=== PATIENT | female | born 1975 | race Caucasian/White ===

== ENCOUNTER 2016-03-30 20:38 | Emergency (ER) | payer OTHER ==
--- NOTE | 2016-03-30 21:34 | ED NURSING NOTES ---
Clinical Report - Nurses [facility] [address] [place] [address] 03/30/2016 20:37 Patient: TINY HARVEY TRIAGE Acuity: LEVEL 4. Chief Complaint: SKIN RASH. --20:52 Vanessa Hoover R.N. 20:40 03/30/16. BP: 110/78. HR: 98. RR: 18. O2 saturation: 98% on room air. Temp: 99.3 F. Pain level now: 09/03. --20:52 Vanessa Hoover R.N. 20:55 03/30/16. --20:55 Vanessa Hoover R.N. Weight: 77.1 kg stated. Height/Length: 64 inches Per Patient. BMI: 29.2. --20:50 Vanessa Hoover R.N. Medications TraMADol HCl Oral. --20:47 Vanessa Hoover R.N. Vibrin 10mg daily . --20:48 Vanessa Hoover R.N. Keflex 500mg 6hrs first dose yesterday . --20:48 Vanessa Hoover R.N. Tramadol 50mg every 6 hrs prn . --20:51 Vanessa Hoover R.N. Allergies Casein. Dairy. Gluten Meal. Soybean-containing Drug Products. wheat . --20:47 Vanessa Hoover R.N. History Arrived by private vehicle. Historian: patient. Accompanied by friend. Reported as (lt axillary area). ( was seen at [facility] yesterday and started on antibiotics--has had 4 doses of antibiotics -- states symptoms are getting worse). She has had fever. ( dx with abscess and cellulitis yesterday. she also states her naturalpath states she has samira and parasites). --20:52 Vanessa Hoover R.N. PAST MEDICAL HX: Last normal menstrual period now. Uses an intrauterine device. SOCIAL HX: Never smoker. No alcohol use or drug use. No infectious disease exposure. ABUSE ASSESSMENT: No report of abuse. SELF HARM ASSESSMENT: A self harm assessment was performed. The patient answered "no" to the question "Have you recently felt down, depressed, or hopeless?", "Have you noticed less interest or pleasure in doing things?", "Do you have thoughts of harming or killing yourself?", "Are you here because you tried to hurt yourself?", "Have you ever tried to hurt yourself before today?", "Have you recently had thoughts about harming or killing others?" and "Do you have any dangerous items in your possession?". FALL RISK ASSESSMENT: Fall risk assessment completed. No fall risk identified. NUTRITIONAL RISK ASSESSMENT: The nutritional risk assessment revealed no deficiencies. FUNCTIONAL ASSESSMENT: Functional assessment: no impairments noted. LEARNING NEEDS ASSESSMENT: The learning needs assessment revealed no barriers. SKIN INTEGRITY ASSESSMENT: Skin integrity risk assessment completed. No skin integrity risk identified. --20:55 Vanessa Hoover R.N. Interventions ID band on patient. To treatment room. --20:52 Vanessa Hoover R.N. PHYSICAL ASSESSMENT 20:57 03/30/16. Ambulatory to room. GENERAL / NEURO / PSYCH: Alert. Oriented X 4. HEENT: Pupils equal, round and reactive to light. Mucous membranes are pink. RESPIRATORY: Respirations not labored. Breath sounds within normal limits. CVS: Pulses within normal limits. GI / : Abdomen nontender. SKIN: Skin is warm and dry. Skin lesion present- scattered small flat red lesions all over body. Skin tenderness- associated with erythema, swelling and increased warmth- left axilla, size of palm of hand. --20:57 Vanessa Hoover R.N. NURSING PROGRESS NOTES 20:55 03/30/16. The initial plan of care for this patient includes an assessment with efforts to address the presence of pain. This plan of care was discussed with the patient. Patient gowned. Reassurance given. Two patient identifiers checked. Call light placed in reach. Side rails up x 1. Bed placed in lowest position. Patient ready for evaluation. --20:56 Vanessa Hoover R.N. DISPOSITION / DISCHARGE 21:52 03/30/16. Departure time: 21 :52 Mar 30 2016. Condition at departure: improved and stable. The goals identified in the patient's plan of care were met. No learning barriers present. Discharge instructions provided and reviewed with the patient. Reviewed medication(s) side effects, precautions, dosing and course information. Prescription(s) given to the patient. Patient verbalized understanding. Written instructions provided in Dominican. The patient was discharged home and accompanied by press officer. She left the Emergency Department ambulatory and via private vehicle. Chemical Waste Management Technician driving. --19:03 Kimber Ochoa R.N. 20:40 03/30/16. BP: 110/78. HR: 98. RR: 18. O2 saturation: 98% on room air. Temp: 99.3 F. Pain level now: 09/03. --19:03 Kimber Ochoa R.N. Locked/Released at 03/31/2016 19:03 by Kimber Ochoa R.N.
--- NOTE | 2016-03-30 21:34 | ED NURSING NOTES ---
Clinical Report - Nurses [facility] [address] [place] [address] 03/30/2016 20:37 Patient: TINY HARVEY TRIAGE Acuity: LEVEL 4. Chief Complaint: SKIN RASH. --20:52 Vanessa Hoover R.N. 20:40 03/30/16. BP: 110/78. HR: 98. RR: 18. O2 saturation: 98% on room air. Temp: 99.3 F. Pain level now: 09/03. --20:52 Vanessa Hoover R.N. 20:55 03/30/16. --20:55 Vanessa Hoover R.N. Weight: 77.1 kg stated. Height/Length: 64 inches Per Patient. BMI: 29.2. --20:50 Vanessa Hoover R.N. Medications TraMADol HCl Oral. --20:47 Vanessa Hoover R.N. Vibrin 10mg daily . --20:48 Vanessa Hoover R.N. Keflex 500mg 6hrs first dose yesterday . --20:48 Vanessa Hoover R.N. Tramadol 50mg every 6 hrs prn . --20:51 Vanessa Hoover R.N. Allergies Casein. Dairy. Gluten Meal. Soybean-containing Drug Products. wheat . --20:47 Vanessa Hoover R.N. History Arrived by private vehicle. Historian: patient. Accompanied by friend. Reported as (lt axillary area). ( [facility]--has had 4 doses of antibiotics -- states symptoms are getting worse). She has had fever. ( dx with abscess and cellulitis yesterday. she also states her naturalpath states she has samira and parasites). --20:52 Vanessa Hoover R.N. PAST MEDICAL HX: Last normal menstrual period now. Uses an intrauterine device. SOCIAL HX: Never smoker. No alcohol use or drug use. No infectious disease exposure. ABUSE ASSESSMENT: No report of abuse. SELF HARM ASSESSMENT: A self harm assessment was performed. The patient answered "no" to the question "Have you recently felt down, depressed, or hopeless?", "Have you noticed less interest or pleasure in doing things?", "Do you have thoughts of harming or killing yourself?", "Are you here because you tried to hurt yourself?", "Have you ever tried to hurt yourself before today?", "Have you recently had thoughts about harming or killing others?" and "Do you have any dangerous items in your possession?". FALL RISK ASSESSMENT: Fall risk assessment completed. No fall risk identified. NUTRITIONAL RISK ASSESSMENT: The nutritional risk assessment revealed no deficiencies. FUNCTIONAL ASSESSMENT: Functional assessment: no impairments noted. LEARNING NEEDS ASSESSMENT: The learning needs assessment revealed no barriers. SKIN INTEGRITY ASSESSMENT: Skin integrity risk assessment completed. No skin integrity risk identified. --20:55 Vanessa Hoover R.N. Interventions ID band on patient. To treatment room. --20:52 Vanessa Hoover R.N. PHYSICAL ASSESSMENT 20:57 03/30/16. Ambulatory to room. GENERAL / NEURO / PSYCH: Alert. Oriented X 4. HEENT: Pupils equal, round and reactive to light. Mucous membranes are pink. RESPIRATORY: Respirations not labored. Breath sounds within normal limits. CVS: Pulses within normal limits. GI / : Abdomen nontender. SKIN: Skin is warm and dry. Skin lesion present- scattered small flat red lesions all over body. Skin tenderness- associated with erythema, swelling and increased warmth- left axilla, size of palm of hand. --20:57 Vanessa Hoover R.N. NURSING PROGRESS NOTES 20:55 03/30/16. The initial plan of care for this patient includes an assessment with efforts to address the presence of pain. This plan of care was discussed with the patient. Patient gowned. Reassurance given. Two patient identifiers checked. Call light placed in reach. Side rails up x 1. Bed placed in lowest position. Patient ready for evaluation. --20:56 Vanessa Hoover R.N. DISPOSITION / DISCHARGE 21:52 03/30/16. Departure time: 21 :52 Mar 30 2016. Condition at departure: improved and stable. The goals identified in the patient's plan of care were met. No learning barriers present. Discharge instructions provided and reviewed with the patient. Reviewed medication(s) side effects, precautions, dosing and course information. Prescription(s) given to the patient. Patient verbalized understanding. Written instructions provided in Monegasque. The patient was discharged home and accompanied by manager planning. She left the Emergency Department ambulatory and via private vehicle. Mixer And Scaler driving. --19:03 Kimber Ochoa R.N. 20:40 03/30/16. BP: 110/78. HR: 98. RR: 18. O2 saturation: 98% on room air. Temp: 99.3 F. Pain level now: 09/03. --19:03 Kimber Ochoa R.N. Locked/Released at 03/31/2016 19:03 by Kimber Ochoa R.N.
--- NOTE | 2016-03-30 21:34 | ED CLINICAL REPORT ---
Clinical Report - Physicians/Mid Levels [facility] [address] [place] [address] 03/30/2016 20:37 Patient: TINY HARVEY Time Seen: 2114; initial patient contact, initial documentation, patient care assumed. Arrived- By private vehicle. Historian- patient. HISTORY OF PRESENT ILLNESS Chief Complaint: SKIN RASH and LESION. This started about 1 years ago or longer and is still present. Not itchy or burning. It is described as painful. It has been generalized in location and located in the left axilla. A possible cause has been identified. (pt has x2 separate issues, has a rash that has been there for over a year, and she states that there are black snail shells things comes out that roll up, she also admits to picking at the wounds, other issue is an abscess or cellulitis to the L armpit area that started this past weekend, started has red hair follicle bump thing). Similar symptoms previously: Chronically, as bad. ( rash). Recent medical care: The patient was seen recently in the office. ( went to yesterday, given rx ultram and keflex for cellulitis, not sure if it is worse, but not better and he didn't treat the rash). REVIEW OF SYSTEMS No fever. All systems otherwise negative, except as recorded above. SOCIAL HISTORY Never smoker. No alcohol use or drug use. No recent travel. Visiting locally. FAMILY HISTORY Negative. ADDITIONAL NOTES The nursing notes have been reviewed with agreement regarding the chief complaint, HPI, ROS, PMH and patient medications and allergies. PHYSICAL EXAM Vital Signs: 03/30/2016 20:40 BP: 110/78. HR: 98. RR: 18. O2 saturation: 98%. Temp: 99.3 F. Pain level now: 7/10. Appearance: Alert. Oriented X3. No acute distress. Anxious. Neck: Neck supple. Respiratory: No respiratory distress. Skin: Skin warm and dry. Abnormal skin color. Rash present. Normal skin turgor. Small area of cellulitis with tenderness, erythema and warmth to the chest (L side of chest near axilla and breast). No lymphangitis. Mild, well-demarcated, erythematous, macular, papular, vesicular, weeping, crusting, excoriated skin rash on the face, chest, back, right arm and left arm- various scabs noted to face, arms, chest, abd, back, some with excoriations, some healing with scar like ruvalcaba, no erythema, no dc, no swelling. Extremities: Normal external inspection. Extremities nontender. Neuro: Oriented X 3. No motor deficit. No sensory deficit. PROGRESS AND PROCEDURES Course of Care: pt showing pics on her phone of her skin and the things that she thinks is coming out that is some type of worm. Patient counseled in person regarding the patient's stable condition and diagnosis. 21:34. Differential Diagnosis: Other possible considerations: mrsa, cellulitis, abscess, scabies, dermatitis, substance abuse, fungus, anxiety. Above considerations are based on history and physical exam. Differential diagnosis was discussed with patient. Disposition: Discharged home in good and unchanged condition (21:34). Condition: good and stable. CLINICAL IMPRESSION Cellulitis of the chest wall. Skin rash. INSTRUCTIONS (over the counter lice shampoo as discussed). Warnings: GENERAL WARNINGS: Return or contact your physician immediately if your condition worsens or changes unexpectedly, if not improving as expected, or if other problems arise. Specifically return if problem worsens. Prescription Medications: Bactrim DS 800 mg / 160 mg: take 1 tablet orally every 12 hours for 10 days. No refill. Bactroban 2% ointment: apply small amount to affected area three times daily for 5 days. Dispense twenty-two (22) grams. No refills. Substitution is permissible. Follow-up: Follow up with your doctor in about three days as needed. Call for an appointment. Summary of care provided to patient. Follow up with a logging crew supervisor [facility] [phone] in about three days as needed. Call for an appointment. Summary of care provided to patient. Understanding of the discharge instructions verbalized by patient. (Electronically signed by Rika Renteria A.R.N.P. 03/30/2016 22:14)
--- NOTE | 2016-03-30 21:34 | ED CLINICAL REPORT ---
Clinical Report - Physicians/Mid Levels [facility] [address] [place] [address] 03/30/2016 20:37 Patient: TINY HARVEY Time Seen: 2114; initial patient contact, initial documentation, patient care assumed. Arrived- By private vehicle. Historian- patient. HISTORY OF PRESENT ILLNESS Chief Complaint: SKIN RASH and LESION. This started about 1 years ago or longer and is still present. Not itchy or burning. It is described as painful. It has been generalized in location and located in the left axilla. A possible cause has been identified. (pt has x2 separate issues, has a rash that has been there for over a year, and she states that there are black snail shells things comes out that roll up, she also admits to picking at the wounds, other issue is an abscess or cellulitis to the L armpit area that started this past weekend, started has red hair follicle bump thing). Similar symptoms previously: Chronically, as bad. ( rash). Recent medical care: The patient was seen recently in the office. ( went to yesterday, given rx ultram and keflex for cellulitis, not sure if it is worse, but not better and he didn't treat the rash). REVIEW OF SYSTEMS No fever. All systems otherwise negative, except as recorded above. SOCIAL HISTORY Never smoker. No alcohol use or drug use. No recent travel. Visiting locally. FAMILY HISTORY Negative. ADDITIONAL NOTES The nursing notes have been reviewed with agreement regarding the chief complaint, HPI, ROS, PMH and patient medications and allergies. PHYSICAL EXAM Vital Signs: 03/30/2016 20:40 BP: 110/78. HR: 98. RR: 18. O2 saturation: 98%. Temp: 99.3 F. Pain level now: 7/10. Appearance: Alert. Oriented X3. No acute distress. Anxious. Neck: Neck supple. Respiratory: No respiratory distress. Skin: Skin warm and dry. Abnormal skin color. Rash present. Normal skin turgor. Small area of cellulitis with tenderness, erythema and warmth to the chest (L side of chest near axilla and breast). No lymphangitis. Mild, well-demarcated, erythematous, macular, papular, vesicular, weeping, crusting, excoriated skin rash on the face, chest, back, right arm and left arm- various scabs noted to face, arms, chest, abd, back, some with excoriations, some healing with scar like ruvalcaba, no erythema, no dc, no swelling. Extremities: Normal external inspection. Extremities nontender. Neuro: Oriented X 3. No motor deficit. No sensory deficit. PROGRESS AND PROCEDURES Course of Care: pt showing pics on her phone of her skin and the things that she thinks is coming out that is some type of worm. Patient counseled in person regarding the patient's stable condition and diagnosis. 21:34. Differential Diagnosis: Other possible considerations: mrsa, cellulitis, abscess, scabies, dermatitis, substance abuse, fungus, anxiety. Above considerations are based on history and physical exam. Differential diagnosis was discussed with patient. Disposition: Discharged home in good and unchanged condition (21:34). Condition: good and stable. CLINICAL IMPRESSION Cellulitis of the chest wall. Skin rash. INSTRUCTIONS (over the counter lice shampoo as discussed). Warnings: GENERAL WARNINGS: Return or contact your physician immediately if your condition worsens or changes unexpectedly, if not improving as expected, or if other problems arise. Specifically return if problem worsens. Prescription Medications: Bactrim DS 800 mg / 160 mg: take 1 tablet orally every 12 hours for 10 days. No refill. Bactroban 2% ointment: apply small amount to affected area three times daily for 5 days. Dispense twenty-two (22) grams. No refills. Substitution is permissible. Follow-up: Follow up with your doctor in about three days as needed. Call for an appointment. Summary of care provided to patient. Follow up with a educational program director [facility] [phone] in about three days as needed. Call for an appointment. Summary of care provided to patient. Understanding of the discharge instructions verbalized by patient. (Electronically signed by Rika Renteria A.R.N.P. 03/30/2016 22:14)
--- NOTE | 2016-03-31 19:04 | ED MAR SUMMARY ---
..... Medication Administration Record [facility] [address] [place] [id number] Patient: TINY HARVEY Visit ID: [id number] 41y, F Weight: 77.1 kg Height/Length: 64 in BMI: 29.2 ALLERGIES: Casein, Dairy, Gluten Meal, Soybean-containing Drug Products, wheat
--- NOTE | 2016-03-31 19:04 | ED MAR SUMMARY ---
..... Medication Administration Record [facility] [address] [place] [id number] Patient: TINY HARVEY Visit ID: [id number] 41y, F Weight: 77.1 kg Height/Length: 64 in BMI: 29.2 ALLERGIES: Casein, Dairy, Gluten Meal, Soybean-containing Drug Products, wheat
--- NOTE | 2016-03-31 19:04 | ED MED RECONCILIATION SUMMARY ---
Patient: TINY HARVEY Medication Reconciliation Report [facility] VisitID: [id number] [place] [address] 41y, F Registration Date/Time: 03/30/2016 Weight: 77.1 kg Height/Length: 64 in. BMI: 29.2 ALLERGIES: Casein, Dairy, Gluten Meal, Soybean-containing Drug Products, wheat The patient's Home Medications are listed below: THE FOLLOWING MEDICATIONS NEED TO BE RECONCILED: Keflex 500mg 6hrs first dose yesterday Tramadol 50mg every 6 hrs prn TraMADol HCl Oral Vibrin 10mg daily The source(s) of the original Home Medication information: Not obtained. The following Medications were given to the patient in the Emergency Department: None. The following Medications were prescribed to the patient: Bactrim DS 800 mg / 160 mg: take 1 tablet orally every 12 hours for 10 days. No refill. -- Rika Renteria, JeanetteR.N.P. Bactroban 2% ointment: apply small amount to affected area three times daily for 5 days. Dispense twenty-two (22) grams. No refills. Substitution is permissible. -- Rika Renteria A.R.N.P.
--- NOTE | 2016-03-31 19:04 | ED MED RECONCILIATION SUMMARY ---
Patient: TINY HARVEY Medication Reconciliation Report [facility] VisitID: [id number] [place] [address] 41y, F Registration Date/Time: 03/30/2016 Weight: 77.1 kg Height/Length: 64 in. BMI: 29.2 ALLERGIES: Casein, Dairy, Gluten Meal, Soybean-containing Drug Products, wheat The patient's Home Medications are listed below: THE FOLLOWING MEDICATIONS NEED TO BE RECONCILED: Keflex 500mg 6hrs first dose yesterday Tramadol 50mg every 6 hrs prn TraMADol HCl Oral Vibrin 10mg daily The source(s) of the original Home Medication information: Not obtained. The following Medications were given to the patient in the Emergency Department: None. The following Medications were prescribed to the patient: Bactrim DS 800 mg / 160 mg: take 1 tablet orally every 12 hours for 10 days. No refill. -- Rika Renteria, JeanetteR.N.P. Bactroban 2% ointment: apply small amount to affected area three times daily for 5 days. Dispense twenty-two (22) grams. No refills. Substitution is permissible. -- Rika Renteria A.R.N.P.
--- NOTE | 2016-03-31 19:04 | ED DISCHARGE INSTRUCTIONS ---
Patient: TINY HARVEY General Instructions [facility] VisitID: [id number] [place] [address] 41y, F Registration Date/Time: 03/30/2016 Cellulitis of the chest wall. Skin rash. INSTRUCTIONS (over the counter lice shampoo as discussed). Warnings: GENERAL WARNINGS: Return or contact your physician immediately if your condition worsens or changes unexpectedly, if not improving as expected, or if other problems arise. Specifically return if problem worsens. Prescription Medications: Bactrim DS 800 mg / 160 mg: take 1 tablet orally every 12 hours for 10 days. No refill. Bactroban 2% ointment: apply small amount to affected area three times daily for 5 days. Dispense twenty-two (22) grams. No refills. Substitution is permissible. Follow-up: Follow up with your doctor in about three days as needed. Call for an appointment. Summary of care provided to patient. Follow up with a informatics pharmacist [facility] [phone] in about three days as needed. Call for an appointment. Summary of care provided to patient. Understanding of the discharge instructions verbalized by patient. ADDITIONAL INFORMATION Dermatitis (Non-Specific) Dermatitis is an inflammation of the skin. The exact cause of your rash is not certain. However, this rash does not appear to be an infection or contagious illness. Taking care of the rash at home should help relieve your symptoms. Home Care: Keep the areas of rash clean by washing it daily. This also helps to keep the skin moist. Use a neutral pH soap such as Dove or Lever 2000. Apply a moisturizing lotion after bathing to prevent dry skin. Avoid skin irritants (wool or silk clothing, grease, oils, some medicines, harsh soaps, and detergents). Wear absorbent, soft fabrics next to the skin rather than rough or scratchy materials. Unless another medicine was prescribed, you may use Hydrocortisone cream (which you can get without a prescription) to reduce the inflammation. Follow Up: Make an appointment with your doctor in the next 1 to 2 weeks if your symptoms do not improve with the above measures. Get Prompt Medical Attention if any of the following occur: Increasing area of redness or pain in the skin Yellow crusts or drainage from the rash Joint pain New rash that appears in other areas of the body Fever of 100.4F (38C) or higher, or as directed by your healthcare provider Cellulitis You have an infection of the skin known as cellulitis. This usually starts with a scrape, cut, insect bite, blister or other opening in the skin which becomes infected. This is a serious condition. It must be watched closely to be sure the infection is not spreading. With antibiotic treatment, the size of the red area will gradually shrink in size until the skin returns to normal. This will take 7-10 days. The red area should never increase in size once the antibiotic medicine has been started. Occasionally, an infection will be resistant to one antibiotic and another one will have to be used. Home Care: 1) Limit the use of the affected part, since excess movement can cause the infection to spread. 2) If the infection is on your leg, walk as little as possible during the first few days of the treatment. Keep your leg elevated while sitting. This will reduce swelling. 3) Take all of the antibiotic medicine exactly as directed until it is gone. Be careful not to miss any doses, especially during the first seven days. Follow Up with your doctor or this facility as directed. Check the infected area daily for the warning signs listed below. Get Prompt Medical Attention if any of the following occur: -- Spreading area of redness -- Increasing swelling or pain -- Appearance of pus or drainage -- Fever over 100.4 F (38.0 C) oral, or over 101.4 F (38.6 C) rectal, after two days on antibiotics Staph Infection (MRSA) "Staph" is the short name for the common bacteria called "staphylococcus aureus". Staph bacteria are often present on the skin without causing an infection. If it gets under the skin an infection occurs. This causes redness, tenderness, swelling and sometimes fluid drainage. MRSA stands for "Methicillin-Resistant Staph Aureus". Unlike a common staph infection, MRSA bacteria are resistant to the usual antibiotics and harder to treat. Also, MRSA is more toxic than common staph bacteria. It can spread quickly throughout the body and cause a life-threatening illness. MRSA is spread to others by direct physical contact with the bacteria. MRSA can also be transmitted from items contaminated by a person who has the bacteria, such as bandages, towels, bed sheets, or sports equipment. It is not spread through the air. Once you have a MRSA skin infection, you are at risk of having it recur in the future. If MRSA infection is suspected, the doctor may take a wound culture to confirm the diagnosis. Any abscess will be drained. One or sometimes two antibiotics that work against MRSA will be prescribed. Home Care: 1) Take any antibiotics prescribed exactly as directed until they are gone. 2) Follow the same washing procedures as outlined for Household Members below. 3) Keep draining wounds covered with clean, dry bandages. Change dressings as they become soiled. 4) You and those in contact with you should wash their hands frequently with soap and warm water or use an alcohol-based hand goldsmith apprentice. Do this after each time you change the bandage or touch the wound. 5) Avoid sharing personal items such as towels, washcloths, razors, clothing, or uniforms. Wash soiled sheets, towels or clothes in hot water with laundry detergent. Use an automatic clothes dryer set on high to kill any remaining bacteria. 6) Remove any artificial nails and nail trinidadian. 7) If you use a gym, wipe down equipment before and after each use. Treatment Of Household Members If you have been diagnosed with possible MRSA infection, those living with you are at higher risk of carrying the bacteria on their skin or in their nose, even if there is no sign of infection. Bacteria must be removed from the skin of all household members (including you) at the same time, so that it is not passed back and forth. Advise them to remove the bacteria as follows: Wash your whole body (scalp to toes) daily for five days with Hibiclens (chlorhexidine). Scrub fingernails with a brush for one minute twice a day. If any skin infections are present (boils, abscess, infected cut) these must be treated by a doctor. Washing alone will not treat a MRSA infection. Clean counter tops and children's toys; do not share personal items such as toothbrush and razors. It is okay to share glasses, plates, utensils. If antibiotic ointment was prescribed use it as directed. Follow Up with your doctor or as advised by our staff. If a wound culture was taken, call as directed in two days to obtain the results. If the culture result is positive for MRSA, tell medical personnel in the future that you were treated for this type of infection. Get Prompt Medical Attention if any of the following occur: -- Increasing redness, swelling or pain -- Red streaks in the skin around the wound -- Weakness or dizziness -- New appearance of pus or drainage from the wound -- New fever over 100.4 F (38.0 C) Sulfamethoxazole, Trimethoprim Oral tablet What is this medicine? SULFAMETHOXAZOLE; TRIMETHOPRIM or SMX-TMP (suhl fuh meth OK osvaldo zohl; trye METH oh prim) is a combination of a sulfonamide antibiotic and a second antibiotic, trimethoprim. It is used to treat or prevent certain kinds of bacterial infections. It will not work for colds, flu, or other viral infections. How should I use this medicine? Take this medicine by mouth with a full glass of water. Follow the directions on the prescription label. Take your medicine at regular intervals. Do not take it more often than directed. Do not skip doses or stop your medicine early. Talk to your size changer regarding the use of this medicine in children. Special care may be needed. This medicine has been used in children as young as 2 months of age. What side effects may I notice from receiving this medicine? Side effects that you should report to your doctor or health certified social workers in health care as soon as possible: allergic reactions like skin rash or hives, swelling of the face, lips, or tongue breathing problems fever or chills, sore throat irregular heartbeat, chest pain joint or muscle pain pain or difficulty passing urine red pinpoint spots on skin redness, blistering, peeling or loosening of the skin, including inside the mouth unusual bleeding or bruising unusually weak or tired yellowing of the eyes or skin Side effects that usually do not require medical attention (report to your doctor or health certified social workers in health care if they continue or are bothersome): diarrhea dizziness headache loss of appetite nausea, vomiting nervousness What may interact with this medicine? Do not take this medicine with any of the following medications: aminobenzoate potassium dofetilide metronidazole This medicine may also interact with the following medications: LUIS DANIEL inhibitors like benazepril, enalapril, lisinopril, and ramipril cyclosporine digoxin diuretics indomethacin medicines for diabetes methenamine methotrexate phenytoin potassium supplements pyrimethamine sulfinpyrazone tricyclic antidepressants warfarin What if I miss a dose? If you miss a dose, take it as soon as you can. If it is almost time for your next dose, take only that dose. Do not take double or extra doses. Where should I keep my medicine? Keep out of the reach of children. Store at room temperature between 20 to 25 degrees C (68 to 77 degrees F). Protect from light. Throw away any unused medicine after the expiration date. What should I tell my health care provider before I take this medicine? They need to know if you have any of these conditions: anemia asthma being treated with anticonvulsants if you frequently drink alcohol containing drinks kidney disease liver disease low level of folic acid or [id number] dehydrogenase poor nutrition or malabsorption porphyria severe allergies thyroid disorder an unusual or allergic reaction to sulfamethoxazole, trimethoprim, sulfa drugs, other medicines, foods, dyes, or preservatives or trying to get breast-feeding What should I watch for while using this medicine? Tell your doctor or health certified social workers in health care if your symptoms do not improve. Drink several glasses of water a day to reduce the risk of kidney problems. Do not treat diarrhea with over the counter products. Contact your doctor if you have diarrhea that lasts more than 2 days or if it is severe and watery. This medicine can make you more sensitive to the sun. Keep out of the sun. If you cannot avoid being in the sun, wear protective clothing and use a sunscreen. Do not use sun lamps or tanning beds/booths. Mupirocin Topical ointment What is this medicine? MUPIROCIN (myoo PEER oh sin) is an antibiotic. It is used on the skin to treat skin infections. How should I use this medicine? This medicine is for external use only. Follow the directions on the prescription label. Wash your hands before and after use. Before applying, wash the affected area with mild soap and water and pat dry. Apply a small amount to the affected area and rub gently. You can cover the area with a gauze dressing. Do not get this medicine in your eyes. If you do, rinse out with plenty of cool tap water. Do not use your medicine more often than directed. Finish the full course of medicine prescribed by your doctor or health certified social workers in health care even if you think your condition is better. Do not use over large areas of burnt skin. Talk to your size changer regarding the use of this medicine in children. Special care may be needed. What side effects may I notice from receiving this medicine? Side effects that you should report to your doctor or health certified social workers in health care as soon as possible: skin rash, redness, continued swelling, burning, itching, stinging, or pain Side effects that usually do not require medical attention (report to your doctor or health certified social workers in health care if they continue or are bothersome): dry skin, itching What may interact with this medicine? Interactions are not expected. Do not use any other skin products on the affected area without telling your doctor or health certified social workers in health care. What if I miss a dose? If you miss a dose, take it as soon as you can. If it is almost time for your next dose, take only that dose. Do not take double or extra doses. Where should I keep my medicine? Keep out of the reach of children. Store at room temperature between 20 and 25 degrees C (68 and 77 degrees F). Throw away any unused medicine after the expiration date. What should I tell my health care provider before I take this medicine? They need to know if you have any of these conditions: an unusual or allergic reaction to mupirocin, polyethylene glycol (PEG), or other topical antibiotic medicine or trying to get breast-feeding What should I watch for while using this medicine? Tell your doctor or health certified social workers in health care if your skin condition does not begin to improve within 3 to 5 days. You have been given the following additional information: Dermatitis, Non-Specific Cellulitis MRSA Skin Infection, Suspected Or Confirmed Sulfamethoxazole, Trimethoprim Oral tablet Mupirocin Topical ointment (Electronically signed by Rika Renteria A.R.NShari 03/30/2016 22:14)
--- NOTE | 2016-03-31 19:04 | ED DISCHARGE INSTRUCTIONS ---
Patient: TINY HARVEY General Instructions [facility] VisitID: [id number] [place] [address] 41y, F Registration Date/Time: 03/30/2016 Cellulitis of the chest wall. Skin rash. INSTRUCTIONS (over the counter lice shampoo as discussed). Warnings: GENERAL WARNINGS: Return or contact your physician immediately if your condition worsens or changes unexpectedly, if not improving as expected, or if other problems arise. Specifically return if problem worsens. Prescription Medications: Bactrim DS 800 mg / 160 mg: take 1 tablet orally every 12 hours for 10 days. No refill. Bactroban 2% ointment: apply small amount to affected area three times daily for 5 days. Dispense twenty-two (22) grams. No refills. Substitution is permissible. Follow-up: Follow up with your doctor in about three days as needed. Call for an appointment. Summary of care provided to patient. Follow up with a table top tile setter [facility] [phone] in about three days as needed. Call for an appointment. Summary of care provided to patient. Understanding of the discharge instructions verbalized by patient. ADDITIONAL INFORMATION Dermatitis (Non-Specific) Dermatitis is an inflammation of the skin. The exact cause of your rash is not certain. However, this rash does not appear to be an infection or contagious illness. Taking care of the rash at home should help relieve your symptoms. Home Care: Keep the areas of rash clean by washing it daily. This also helps to keep the skin moist. Use a neutral pH soap such as Dove or Lever 2000. Apply a moisturizing lotion after bathing to prevent dry skin. Avoid skin irritants (wool or silk clothing, grease, oils, some medicines, harsh soaps, and detergents). Wear absorbent, soft fabrics next to the skin rather than rough or scratchy materials. Unless another medicine was prescribed, you may use Hydrocortisone cream (which you can get without a prescription) to reduce the inflammation. Follow Up: Make an appointment with your doctor in the next 1 to 2 weeks if your symptoms do not improve with the above measures. Get Prompt Medical Attention if any of the following occur: Increasing area of redness or pain in the skin Yellow crusts or drainage from the rash Joint pain New rash that appears in other areas of the body Fever of 100.4F (38C) or higher, or as directed by your healthcare provider Cellulitis You have an infection of the skin known as cellulitis. This usually starts with a scrape, cut, insect bite, blister or other opening in the skin which becomes infected. This is a serious condition. It must be watched closely to be sure the infection is not spreading. With antibiotic treatment, the size of the red area will gradually shrink in size until the skin returns to normal. This will take 7-10 days. The red area should never increase in size once the antibiotic medicine has been started. Occasionally, an infection will be resistant to one antibiotic and another one will have to be used. Home Care: 1) Limit the use of the affected part, since excess movement can cause the infection to spread. 2) If the infection is on your leg, walk as little as possible during the first few days of the treatment. Keep your leg elevated while sitting. This will reduce swelling. 3) Take all of the antibiotic medicine exactly as directed until it is gone. Be careful not to miss any doses, especially during the first seven days. Follow Up with your doctor or this facility as directed. Check the infected area daily for the warning signs listed below. Get Prompt Medical Attention if any of the following occur: -- Spreading area of redness -- Increasing swelling or pain -- Appearance of pus or drainage -- Fever over 100.4 F (38.0 C) oral, or over 101.4 F (38.6 C) rectal, after two days on antibiotics Staph Infection (MRSA) "Staph" is the short name for the common bacteria called "staphylococcus aureus". Staph bacteria are often present on the skin without causing an infection. If it gets under the skin an infection occurs. This causes redness, tenderness, swelling and sometimes fluid drainage. MRSA stands for "Methicillin-Resistant Staph Aureus". Unlike a common staph infection, MRSA bacteria are resistant to the usual antibiotics and harder to treat. Also, MRSA is more toxic than common staph bacteria. It can spread quickly throughout the body and cause a life-threatening illness. MRSA is spread to others by direct physical contact with the bacteria. MRSA can also be transmitted from items contaminated by a person who has the bacteria, such as bandages, towels, bed sheets, or sports equipment. It is not spread through the air. Once you have a MRSA skin infection, you are at risk of having it recur in the future. If MRSA infection is suspected, the doctor may take a wound culture to confirm the diagnosis. Any abscess will be drained. One or sometimes two antibiotics that work against MRSA will be prescribed. Home Care: 1) Take any antibiotics prescribed exactly as directed until they are gone. 2) Follow the same washing procedures as outlined for Household Members below. 3) Keep draining wounds covered with clean, dry bandages. Change dressings as they become soiled. 4) You and those in contact with you should wash their hands frequently with soap and warm water or use an alcohol-based hand dental hygiene administrative assistant. Do this after each time you change the bandage or touch the wound. 5) Avoid sharing personal items such as towels, washcloths, razors, clothing, or uniforms. Wash soiled sheets, towels or clothes in hot water with laundry detergent. Use an automatic clothes dryer set on high to kill any remaining bacteria. 6) Remove any artificial nails and nail macedonian. 7) If you use a gym, wipe down equipment before and after each use. Treatment Of Household Members If you have been diagnosed with possible MRSA infection, those living with you are at higher risk of carrying the bacteria on their skin or in their nose, even if there is no sign of infection. Bacteria must be removed from the skin of all household members (including you) at the same time, so that it is not passed back and forth. Advise them to remove the bacteria as follows: Wash your whole body (scalp to toes) daily for five days with Hibiclens (chlorhexidine). Scrub fingernails with a brush for one minute twice a day. If any skin infections are present (boils, abscess, infected cut) these must be treated by a doctor. Washing alone will not treat a MRSA infection. Clean counter tops and children's toys; do not share personal items such as toothbrush and razors. It is okay to share glasses, plates, utensils. If antibiotic ointment was prescribed use it as directed. Follow Up with your doctor or as advised by our staff. If a wound culture was taken, call as directed in two days to obtain the results. If the culture result is positive for MRSA, tell medical personnel in the future that you were treated for this type of infection. Get Prompt Medical Attention if any of the following occur: -- Increasing redness, swelling or pain -- Red streaks in the skin around the wound -- Weakness or dizziness -- New appearance of pus or drainage from the wound -- New fever over 100.4 F (38.0 C) Sulfamethoxazole, Trimethoprim Oral tablet What is this medicine? SULFAMETHOXAZOLE; TRIMETHOPRIM or SMX-TMP (suhl fuh meth OK osvaldo zohl; trye METH oh prim) is a combination of a sulfonamide antibiotic and a second antibiotic, trimethoprim. It is used to treat or prevent certain kinds of bacterial infections. It will not work for colds, flu, or other viral infections. How should I use this medicine? Take this medicine by mouth with a full glass of water. Follow the directions on the prescription label. Take your medicine at regular intervals. Do not take it more often than directed. Do not skip doses or stop your medicine early. Talk to your belt fixer regarding the use of this medicine in children. Special care may be needed. This medicine has been used in children as young as 2 months of age. What side effects may I notice from receiving this medicine? Side effects that you should report to your doctor or health health care assistant as soon as possible: allergic reactions like skin rash or hives, swelling of the face, lips, or tongue breathing problems fever or chills, sore throat irregular heartbeat, chest pain joint or muscle pain pain or difficulty passing urine red pinpoint spots on skin redness, blistering, peeling or loosening of the skin, including inside the mouth unusual bleeding or bruising unusually weak or tired yellowing of the eyes or skin Side effects that usually do not require medical attention (report to your doctor or health health care assistant if they continue or are bothersome): diarrhea dizziness headache loss of appetite nausea, vomiting nervousness What may interact with this medicine? Do not take this medicine with any of the following medications: aminobenzoate potassium dofetilide metronidazole This medicine may also interact with the following medications: LUIS DANIEL inhibitors like benazepril, enalapril, lisinopril, and ramipril cyclosporine digoxin diuretics indomethacin medicines for diabetes methenamine methotrexate phenytoin potassium supplements pyrimethamine sulfinpyrazone tricyclic antidepressants warfarin What if I miss a dose? If you miss a dose, take it as soon as you can. If it is almost time for your next dose, take only that dose. Do not take double or extra doses. Where should I keep my medicine? Keep out of the reach of children. Store at room temperature between 20 to 25 degrees C (68 to 77 degrees F). Protect from light. Throw away any unused medicine after the expiration date. What should I tell my health care provider before I take this medicine? They need to know if you have any of these conditions: anemia asthma being treated with anticonvulsants if you frequently drink alcohol containing drinks kidney disease liver disease low level of folic acid or [id number] dehydrogenase poor nutrition or malabsorption porphyria severe allergies thyroid disorder an unusual or allergic reaction to sulfamethoxazole, trimethoprim, sulfa drugs, other medicines, foods, dyes, or preservatives or trying to get breast-feeding What should I watch for while using this medicine? Tell your doctor or health health care assistant if your symptoms do not improve. Drink several glasses of water a day to reduce the risk of kidney problems. Do not treat diarrhea with over the counter products. Contact your doctor if you have diarrhea that lasts more than 2 days or if it is severe and watery. This medicine can make you more sensitive to the sun. Keep out of the sun. If you cannot avoid being in the sun, wear protective clothing and use a sunscreen. Do not use sun lamps or tanning beds/booths. Mupirocin Topical ointment What is this medicine? MUPIROCIN (myoo PEER oh sin) is an antibiotic. It is used on the skin to treat skin infections. How should I use this medicine? This medicine is for external use only. Follow the directions on the prescription label. Wash your hands before and after use. Before applying, wash the affected area with mild soap and water and pat dry. Apply a small amount to the affected area and rub gently. You can cover the area with a gauze dressing. Do not get this medicine in your eyes. If you do, rinse out with plenty of cool tap water. Do not use your medicine more often than directed. Finish the full course of medicine prescribed by your doctor or health health care assistant even if you think your condition is better. Do not use over large areas of burnt skin. Talk to your belt fixer regarding the use of this medicine in children. Special care may be needed. What side effects may I notice from receiving this medicine? Side effects that you should report to your doctor or health health care assistant as soon as possible: skin rash, redness, continued swelling, burning, itching, stinging, or pain Side effects that usually do not require medical attention (report to your doctor or health health care assistant if they continue or are bothersome): dry skin, itching What may interact with this medicine? Interactions are not expected. Do not use any other skin products on the affected area without telling your doctor or health health care assistant. What if I miss a dose? If you miss a dose, take it as soon as you can. If it is almost time for your next dose, take only that dose. Do not take double or extra doses. Where should I keep my medicine? Keep out of the reach of children. Store at room temperature between 20 and 25 degrees C (68 and 77 degrees F). Throw away any unused medicine after the expiration date. What should I tell my health care provider before I take this medicine? They need to know if you have any of these conditions: an unusual or allergic reaction to mupirocin, polyethylene glycol (PEG), or other topical antibiotic medicine or trying to get breast-feeding What should I watch for while using this medicine? Tell your doctor or health health care assistant if your skin condition does not begin to improve within 3 to 5 days. You have been given the following additional information: Dermatitis, Non-Specific Cellulitis MRSA Skin Infection, Suspected Or Confirmed Sulfamethoxazole, Trimethoprim Oral tablet Mupirocin Topical ointment (Electronically signed by Rika Renteria A.R.NShari 03/30/2016 22:14)
== END 2016-03-30 21:52 | disposition home or self-care (01) ==
LOC: ED SRH 20:38
DX: L03.313 Cellulitis of chest wall (principal); R21 Rash and other nonspecific skin eruption

== ENCOUNTER 2016-04-17 11:22 | Emergency (ER) | payer OTHER ==
--- NOTE | 2016-04-17 15:08 | ED ORDER SUMMARY ---
..... Patient: TINY HARVEY OrderSheet [facility] VisitID: [id number] [address] [place] [address] 41y, F Registration Date/Time: 04/17/2016 ORDER SHEET Weight: 76.6 kg (stated) Allergies: Casein, Dairy, Gluten Meal, Soybean-containing Drug Products, wheat GENERAL ORDERS: CBC w Diff Urgent (12:04/17/2016 LWhalen R.N. per protocol) (Ack 12:27 KHoerner) (13:36 LWhalen R.N.) CMP Urgent (:04/17/2016 LWhalen R.N. per protocol) (Ack 12:27 KHoerner) (13:36 LWhalen R.N.) UA-Culture if indicated Urgent (:04/17/2016 LWhalen R.N. per protocol) (Ack 12:27 KHoerner) (13:36 LWhalen R.N.) PT with INR Urgent (12:04/17/2016 LWhalen R.N. per protocol) (Ack 12:27 KHoerner) (13:36 LWhalen R.N.) Amylase Urgent (12:04/17/2016 LWhalen R.N. per protocol) (Ack 12:27 KHoerner) (13:36 LWhalen R.N.) Lipase Urgent (12:04/17/2016 LWhalen R.N. per protocol) (Ack 12:27 KHoerner) (13:36 LWhalen R.N.) Urine Urgent (12:04/17/2016 LWhalen R.N. per protocol) (Ack 12:27 KHoerner) (13:36 LWhalen R.N.) Serum Quantitative Urgent (:04/17/2016 LWhalen R.N. per protocol) (Ack 12:27 KHoerner) (Cancelled: Physician Order12:57 Becky Partida) Pulse oximeter (12:04/17/2016 LWhalen R.N. per protocol) (Ack 12:27 KHoerner) (13:36 LWhalen R.N.) Vitals (12:23 04/17/2016 LWhalen R.N. per protocol) (Ack 12:27 Ric) (13:36 LWhalen R.N.) Stool for C. Difficile Urgent (12:57 04/17/2016 Becky Partida) (Ack 12:59 Ric) (13:36 LWhalen R.N.) MEDICATION ORDERS: Bentyl PO 20 mg (NOW) (12:58 04/17/2016 Becky Partida) (13:36 LWhalen R.N.) IV FLUIDS: IV NS : initial bolus 1000 mL (1000 mL/hr), then 1000 mL/hr (NOW) (12:20 04/17/2016 LWhalen R.N. per protocol) (12:24 LWhalen R.N.) IV Saline Lock (12:23 04/17/2016 LWhalen R.N. per protocol) (12:25 LWhalen R.N.) Zofran IV 4 mg (NOW) (12:58 04/17/2016 Becky Partida) (13:36 LWhalen R.N.) ORDER SHEET NOTES: [Electronically signed by Kanu Baum Dr. (20:42 04/18/2016)] [Electronically signed by Jocelyne Pugh R.N. (19:15 04/20/2016)] [Electronically locked/signed by Jocelyne Pugh R.N. (19:15 04/20/2016)]
--- NOTE | 2016-04-17 15:08 | ED NURSING NOTES ---
Clinical Report - Nurses [facility] [address] [place] [address] 04/17/2016 11:23 Patient: TINY HARVEY TRIAGE Triage time 11:36. Acuity: LEVEL 3. Chief Complaint: NAUSEA. 11:41 04/17/16. Alert. No acute distress. --11:41 Trixie Richardson R.N. 11:41 04/17/16. HR: 94. RR: 20. O2 saturation: 100%. Temp: 98.2 F. Pain level now 12/04. --11:41 Trixie Richardson R.N. Weight: 76.6 kg stated. Height/Length: 64 inches Per Patient. BMI: 29. --11:37 Trixie Richardson R.N. Medications Vibrid. --11:39 Trixie Richardson R.N. Medication/allergy information source: the patient. --11:41 Trixie Richardson R.N. Allergies Casein. Dairy. Gluten Meal. Soybean-containing Drug Products. wheat . --11:39 Trixie Richardson R.N. History Arrived by private vehicle. Historian: patient. Primary physician (no pcp). ( abdominal pain and diarrhea since saturday night. States she recently completed a course of antibiotics for cellulitis. anxious in triage). Onset. (4 days weeks). She has had nausea and diarrhea. Treatment COMBAT SYSTEMS OFFICER: None. PAST MEDICAL HX: Uses an intrauterine device. Denies current . SOCIAL HX: Never smoker. Occasional alcohol use. No drug use. FALL RISK ASSESSMENT: Fall risk assessment completed. No fall risk identified. NUTRITIONAL RISK ASSESSMENT: The nutritional risk assessment revealed no deficiencies. FUNCTIONAL ASSESSMENT: Functional assessment: no impairments noted. LEARNING NEEDS ASSESSMENT: The learning needs assessment revealed no barriers. SKIN INTEGRITY ASSESSMENT: Skin integrity risk assessment completed. No skin integrity risk identified. --11:41 Trixie Richardson R.N. PROBLEMS: Skin Rash. Cellulitis. Lumbar Strain. Abdominal Pain. Herpes Simplex. Herpes Genitalis. Medication Refill. Costochondritis. Irritable Bowel Syndrome. Abd pain/bloating . Contusion. Anemia. Anxiety Reaction. Depression. --11:39 Trixie Richardson R.N. Sciatica. --11:40 Trixie Richardson R.N. Interventions ID band on patient. To treatment room. --11:41 Trixie Richardson R.N. NURSING PROGRESS NOTES 12:24 04/17/2016 Site #1 started via IV in the left antecubital space with an 18g angiocath, with aseptic technique and good blood return; one attempt. Blood drawn: rainbow set. Labeled in the presence of the patient and sent to the lab. Saline lock flushed with 10 mL saline. --12:24 Jocelyne Pugh R.N. 12:24 04/17/2016 Started bag #1 1000 mL IV Fluids IV NS (Saline); at 1000 mL/hr over 1 hour(s) via site #1 via IV pump. Allergies verified and confirmed 5 rights. IV patency established. IV site checked: no pain, redness, or swelling. IV flushed thoroughly pre- and post-medication administration. --12:24 Jocelyne Pugh R.N. ( assisted pt. up to use restroom. Given nuns hat and spec. cup to collect stool sample.). --13:32 Eri Watson ER Tech1 13:21 04/17/2016 Zofran (Ondansetron HCl) IVP 4 mg given over 2 minute(s) via site #1. Allergies verified and confirmed 5 rights. IV patency established. IV site checked: no pain, redness, or swelling. IV flushed thoroughly pre- and post-medication administration. --13:36 Jocelyne Pugh R.N. 13:36 04/17/2016 Bentyl (Dicyclomine HCl) PO Tablets 20 mg given. Allergies verified and confirmed 5 rights. --13:36 Jocelyne Pugh R.N. DISPOSITION / DISCHARGE Departure time: 16:00 Apr 17 2016. Condition at departure: improved. No learning barriers present. Discharge instructions provided and reviewed with the patient. Reviewed warnings. Reviewed medication(s). Treatments reviewed. Reviewed referrals. Patient verbalized understanding. Written instructions provided in Libyan. The patient was discharged home. She left the Emergency Department ambulatory and via private vehicle. Patient driving. --16:26 Jocelyne Pugh R.N. 16:11 04/17/16. BP: 106/70. HR: 87. RR: 18. O2 saturation: 99%. Temp: 98.2 F. Pain level now 0/10. --16:26 Jocelyne Pugh R.N. Locked/Released at 04/20/2016 19:15 by Jocelyne Pugh R.N.
--- NOTE | 2016-04-17 15:08 | ED NURSING NOTES ---
Clinical Report - Nurses [facility] [address] [place] [address] 04/17/2016 11:23 Patient: TINY HARVEY TRIAGE Triage time 11:36. Acuity: LEVEL 3. Chief Complaint: NAUSEA. 11:41 04/17/16. Alert. No acute distress. --11:41 Trixie Richardson R.N. 11:41 04/17/16. HR: 94. RR: 20. O2 saturation: 100%. Temp: 98.2 F. Pain level now 12/04. --11:41 Trixie Richardson R.N. Weight: 76.6 kg stated. Height/Length: 64 inches Per Patient. BMI: 29. --11:37 Trixie Richardson R.N. Medications Vibrid. --11:39 Trixie Richardson R.N. Medication/allergy information source: the patient. --11:41 Trixie Richardson R.N. Allergies Casein. Dairy. Gluten Meal. Soybean-containing Drug Products. wheat . --11:39 Trixie Richardson R.N. History Arrived by private vehicle. Historian: patient. Primary physician (no pcp). ( abdominal pain and diarrhea since saturday night. States she recently completed a course of antibiotics for cellulitis. anxious in triage). Onset. (4 days weeks). She has had nausea and diarrhea. Treatment HUB BANDER: None. PAST MEDICAL HX: Uses an intrauterine device. Denies current . SOCIAL HX: Never smoker. Occasional alcohol use. No drug use. FALL RISK ASSESSMENT: Fall risk assessment completed. No fall risk identified. NUTRITIONAL RISK ASSESSMENT: The nutritional risk assessment revealed no deficiencies. FUNCTIONAL ASSESSMENT: Functional assessment: no impairments noted. LEARNING NEEDS ASSESSMENT: The learning needs assessment revealed no barriers. SKIN INTEGRITY ASSESSMENT: Skin integrity risk assessment completed. No skin integrity risk identified. --11:41 Trixie Richardson R.N. PROBLEMS: Skin Rash. Cellulitis. Lumbar Strain. Abdominal Pain. Herpes Simplex. Herpes Genitalis. Medication Refill. Costochondritis. Irritable Bowel Syndrome. Abd pain/bloating . Contusion. Anemia. Anxiety Reaction. Depression. --11:39 Trixie Richardson R.N. Sciatica. --11:40 Trixie Richardson R.N. Interventions ID band on patient. To treatment room. --11:41 Trixie Richardson R.N. NURSING PROGRESS NOTES 12:24 04/17/2016 Site #1 started via IV in the left antecubital space with an 18g angiocath, with aseptic technique and good blood return; one attempt. Blood drawn: rainbow set. Labeled in the presence of the patient and sent to the lab. Saline lock flushed with 10 mL saline. --12:24 Jocelyne Pugh R.N. 12:24 04/17/2016 Started bag #1 1000 mL IV Fluids IV NS (Saline); at 1000 mL/hr over 1 hour(s) via site #1 via IV pump. Allergies verified and confirmed 5 rights. IV patency established. IV site checked: no pain, redness, or swelling. IV flushed thoroughly pre- and post-medication administration. --12:24 Jocelyne Pugh R.N. ( assisted pt. up to use restroom. Given nuns hat and spec. cup to collect stool sample.). --13:32 Eir Watson ER Tech1 13:21 04/17/2016 Zofran (Ondansetron HCl) IVP 4 mg given over 2 minute(s) via site #1. Allergies verified and confirmed 5 rights. IV patency established. IV site checked: no pain, redness, or swelling. IV flushed thoroughly pre- and post-medication administration. --13:36 Jocelyne Pugh R.N. 13:36 04/17/2016 Bentyl (Dicyclomine HCl) PO Tablets 20 mg given. Allergies verified and confirmed 5 rights. --13:36 Jocelyne Pugh R.N. DISPOSITION / DISCHARGE Departure time: 16:00 Apr 17 2016. Condition at departure: improved. No learning barriers present. Discharge instructions provided and reviewed with the patient. Reviewed warnings. Reviewed medication(s). Treatments reviewed. Reviewed referrals. Patient verbalized understanding. Written instructions provided in Gambian. The patient was discharged home. She left the Emergency Department ambulatory and via private vehicle. Patient driving. --16:26 Jocelyne Pugh R.N. 16:11 04/17/16. BP: 106/70. HR: 87. RR: 18. O2 saturation: 99%. Temp: 98.2 F. Pain level now 0/10. --16:26 Jocelyne Pugh R.N. Locked/Released at 04/20/2016 19:15 by Jocelyne Pugh R.N.
--- NOTE | 2016-04-17 15:08 | ED CLINICAL REPORT ---
Clinical Report - Physicians/Mid Levels [facility] [address] [place] [address] 04/17/2016 11:23 Patient: TINY HARVEY Time Seen: 12:27; initial patient contact. Arrived- By private vehicle. Historian- patient. HISTORY OF PRESENT ILLNESS Chief Complaint: ABDOMINAL PAIN. At its maximum, severity described as moderate. When seen in the E.D., severity described as mild. Modifying factors. Not worsened by anything. Not relieved by anything. It is described as cramping. No radiation. It is described as generalized in location. The patient has had nausea, loss of appetite and diarrhea. No vomiting. Similar symptoms previously: Several times. Recent medical care: Not recently seen/assessed. REVIEW OF SYSTEMS No constipation, black stools, pain with urination, urinary frequency or bloody stools. No fever. She has had chills. All systems otherwise negative, except as recorded above. PAST HISTORY Skin Rash. Cellulitis. Lumbar Strain. Abdominal Pain. Herpes Simplex. Herpes Genitalis. Medication Refill. Costochondritis. Irritable Bowel Syndrome. Abd pain/bloating . Contusion. Anemia. Anxiety Reaction. Depression. Sciatica. SOCIAL HISTORY Never smoker. No alcohol use or drug use. ADDITIONAL NOTES The nursing notes have been reviewed with agreement regarding the chief complaint, PMH and patient medications and allergies. PHYSICAL EXAM Vital Signs: 04/17/2016 16:11 BP: 106/70. HR: 87. RR: 18. O2 saturation: 99%. Temp: 98.2 F. Have been reviewed as normal. Appearance: Alert. Oriented X3. No acute distress. Eyes: Eyes normal inspection. No scleral icterus. ENT: Dry mucous membranes present. CVS: Normal heart rate and rhythm. Heart sounds normal. Respiratory: No respiratory distress. Breath sounds normal. Abdomen: Soft. Mild tenderness diffusely. No guarding, rebound tenderness or Beasley's, obturator or psoas sign present. Abnormal bowel sounds: hyperactive. Mass present. Organomegaly present. No distention. Back: No CVA tenderness. Skin: Skin warm and dry. Normal skin color. No rash. Extremities: No lower extremity edema. Neuro: Oriented X 3. LABS, X-RAYS, AND EKG Laboratory Tests: CBC w Diff: (KOFI: 04/17/2016 12:00) ( [facility] 04/17/2016 12:32) Final results Test Result Flag Units (Reference) WHITE BLOOD COUNT 5.5 K/uL (4.5-11.5) RED BLOOD COUNT 4.37 M/uL (4.00-5.20) HEMOGLOBIN 13.8 gm/dL (12.0-16.0) HEMATOCRIT 40.4 % (36.0-46.0) MEAN CELL VOLUME 92 fL (80-100) MEAN CORPUSCULAR HGB 32 pg (26-34) MEAN CORPUSCULAR HGB CONC 34 g/dL (31-37) RED CELL DISTRIBUTION WIDTH 12.7 % (11.6-14.8) PLATELET COUNT 353 K/uL (150-400) NEUTROPHIL % 55.0 % (50-75) LYMPH % 26.5 % (25-40) MONO % 14.6 H % (3-14) EOSINOPHIL % 3.2 % (0-4) BASOPHIL % 0.7 % (0-2) PT with INR: (KOFI: 04/17/2016 12:00) ( [facility] 04/17/2016 12:41) Final results Test Result Flag Units (Reference) INR 0.9 (0.8-1.2) Low Intensity Therapy: INR 1.5-2.0 PT range 18.5-23.1Mod.Intensity Therapy: INR 2.0-3.0 PT range 23.1-31.5High Intensity Therapy: INR 2.5-3.5 PT range 27.4-35.5High Intensity Therapy 2: INR 3.0-4.0 PT range 31.5-39.3 CMP: (KOFI: 04/17/2016 12:00) ( [facility] 04/17/2016 12:51) Final results Test Result Flag Units (Reference) GLUCOSE 90 mg/dL (70-110) BUN 11 mg/dL (7-18) CREATININE 0.8 mg/dL (0.6-1.3) Estimated GFR >60 mL/min Estimated GFR- >60 mL/min Note: Persistent reduction over 3 months in eGFR<60 mL/min/1.73 m2 defines CKD. Patients with eGFR values>=60 mL/min/1.73 m2 may also have CKD if evidence ofpersistent proteinuria. Additional information may be foundat www.kidney.org. SODIUM 141 mmol/L (136-145) POTASSIUM 3.7 mmol/L (3.5-5.1) CHLORIDE 104 mmol/L (98-107) CARBON DIOXIDE 22 mmol/L (21-32) CALCIUM 8.4 L mg/dL (8.5-10.1) TOTAL PROTEIN 7.4 g/dL (6.4-8.2) ALBUMIN 3.6 g/dL (3.3-5.0) BILIRUBIN, TOTAL 0.3 mg/dL (0.0-1.0) ALKALINE PHOSPHATASE 79 U/L (46-116) AST (SGOT) 58 H U/L (15-37) ALT (SGPT) 96 H U/L (12-78) LIPASE 165 U/L (73-393) AMYLASE 21 L U/L (25-115) BETA HCG, QUANTITATIVE <1 mIU/mL REFERENCE RANGE:Adult Males: <2 mIU/mLNon- Females: <6 mIU/mL Females:Approximate Approximate hCGGestational Age Range (mIU/mL) 0-1 week 0-501-2 weeks 40-3002-3 weeks 100-25924-0 weeks 500-57974-2 months 5,000-200,0002-3 months 10,000-100,0002nd trimester 3,000-50,0003rd trimester 1,000-50,000 Stool for C. Difficile: (KOFI: 04/17/2016 14:00) ( MsgRcvd 04/17/2016 14:40) Final results Test Result Flag Units (Reference) CDT SOURCE STOOL C-DIFFICILE TOXIN A/B CDT RESULT:: NEGATIVE . PROGRESS AND PROCEDURES Disposition: Discharged home in good and improved condition. Condition: good. CLINICAL IMPRESSION Acute viral gastroenteritis. INSTRUCTIONS Drink plenty of fluids. Your Current Medications: CONTINUE TAKING THE FOLLOWING MEDICATIONS: Vibrid*. Prescription Medications: Zofran (orally disintegrating tablets) 4 mg: take 1 orally every 6 hours as needed for nausea and vomiting. Dispense ten (10). No refill. Substitution is permissible. Bentyl 20 mg tablets: take 1 orally every 6 hours as needed for abdominal cramps or abdominal discomfort. Dispense thirty (30). No refill. Substitution is permissible. Follow-up: Follow up with your doctor in about two days. Call for an appointment. (Electronically signed by Kanu Baum Dr. 04/18/2016 20:42)
--- NOTE | 2016-04-17 15:08 | ED CLINICAL REPORT ---
Clinical Report - Physicians/Mid Levels [facility] [address] [place] [address] 04/17/2016 11:23 Patient: TINY HARVEY Time Seen: 12:27; initial patient contact. Arrived- By private vehicle. Historian- patient. HISTORY OF PRESENT ILLNESS Chief Complaint: ABDOMINAL PAIN. At its maximum, severity described as moderate. When seen in the E.D., severity described as mild. Modifying factors. Not worsened by anything. Not relieved by anything. It is described as cramping. No radiation. It is described as generalized in location. The patient has had nausea, loss of appetite and diarrhea. No vomiting. Similar symptoms previously: Several times. Recent medical care: Not recently seen/assessed. REVIEW OF SYSTEMS No constipation, black stools, pain with urination, urinary frequency or bloody stools. No fever. She has had chills. All systems otherwise negative, except as recorded above. PAST HISTORY Skin Rash. Cellulitis. Lumbar Strain. Abdominal Pain. Herpes Simplex. Herpes Genitalis. Medication Refill. Costochondritis. Irritable Bowel Syndrome. Abd pain/bloating . Contusion. Anemia. Anxiety Reaction. Depression. Sciatica. SOCIAL HISTORY Never smoker. No alcohol use or drug use. ADDITIONAL NOTES The nursing notes have been reviewed with agreement regarding the chief complaint, PMH and patient medications and allergies. PHYSICAL EXAM Vital Signs: 04/17/2016 16:11 BP: 106/70. HR: 87. RR: 18. O2 saturation: 99%. Temp: 98.2 F. Have been reviewed as normal. Appearance: Alert. Oriented X3. No acute distress. Eyes: Eyes normal inspection. No scleral icterus. ENT: Dry mucous membranes present. CVS: Normal heart rate and rhythm. Heart sounds normal. Respiratory: No respiratory distress. Breath sounds normal. Abdomen: Soft. Mild tenderness diffusely. No guarding, rebound tenderness or Beasley's, obturator or psoas sign present. Abnormal bowel sounds: hyperactive. Mass present. Organomegaly present. No distention. Back: No CVA tenderness. Skin: Skin warm and dry. Normal skin color. No rash. Extremities: No lower extremity edema. Neuro: Oriented X 3. LABS, X-RAYS, AND EKG Laboratory Tests: CBC w Diff: (KOFI: 04/17/2016 12:00) ( [facility] 04/17/2016 12:32) Final results Test Result Flag Units (Reference) WHITE BLOOD COUNT 5.5 K/uL (4.5-11.5) RED BLOOD COUNT 4.37 M/uL (4.00-5.20) HEMOGLOBIN 13.8 gm/dL (12.0-16.0) HEMATOCRIT 40.4 % (36.0-46.0) MEAN CELL VOLUME 92 fL (80-100) MEAN CORPUSCULAR HGB 32 pg (26-34) MEAN CORPUSCULAR HGB CONC 34 g/dL (31-37) RED CELL DISTRIBUTION WIDTH 12.7 % (11.6-14.8) PLATELET COUNT 353 K/uL (150-400) NEUTROPHIL % 55.0 % (50-75) LYMPH % 26.5 % (25-40) MONO % 14.6 H % (3-14) EOSINOPHIL % 3.2 % (0-4) BASOPHIL % 0.7 % (0-2) PT with INR: (KOFI: 04/17/2016 12:00) ( [facility] 04/17/2016 12:41) Final results Test Result Flag Units (Reference) INR 0.9 (0.8-1.2) Low Intensity Therapy: INR 1.5-2.0 PT range 18.5-23.1Mod.Intensity Therapy: INR 2.0-3.0 PT range 23.1-31.5High Intensity Therapy: INR 2.5-3.5 PT range 27.4-35.5High Intensity Therapy 2: INR 3.0-4.0 PT range 31.5-39.3 CMP: (KOFI: 04/17/2016 12:00) ( [facility] 04/17/2016 12:51) Final results Test Result Flag Units (Reference) GLUCOSE 90 mg/dL (70-110) BUN 11 mg/dL (7-18) CREATININE 0.8 mg/dL (0.6-1.3) Estimated GFR >60 mL/min Estimated GFR- >60 mL/min Note: Persistent reduction over 3 months in eGFR<60 mL/min/1.73 m2 defines CKD. Patients with eGFR values>=60 mL/min/1.73 m2 may also have CKD if evidence ofpersistent proteinuria. Additional information may be foundat www.kidney.org. SODIUM 141 mmol/L (136-145) POTASSIUM 3.7 mmol/L (3.5-5.1) CHLORIDE 104 mmol/L (98-107) CARBON DIOXIDE 22 mmol/L (21-32) CALCIUM 8.4 L mg/dL (8.5-10.1) TOTAL PROTEIN 7.4 g/dL (6.4-8.2) ALBUMIN 3.6 g/dL (3.3-5.0) BILIRUBIN, TOTAL 0.3 mg/dL (0.0-1.0) ALKALINE PHOSPHATASE 79 U/L (46-116) AST (SGOT) 58 H U/L (15-37) ALT (SGPT) 96 H U/L (12-78) LIPASE 165 U/L (73-393) AMYLASE 21 L U/L (25-115) BETA HCG, QUANTITATIVE <1 mIU/mL REFERENCE RANGE:Adult Males: <2 mIU/mLNon- Females: <6 mIU/mL Females:Approximate Approximate hCGGestational Age Range (mIU/mL) 0-1 week 0-501-2 weeks 40-3002-3 weeks 100-13920-8 weeks 500-57343-0 months 5,000-200,0002-3 months 10,000-100,0002nd trimester 3,000-50,0003rd trimester 1,000-50,000 Stool for C. Difficile: (KOFI: 04/17/2016 14:00) ( MsgRcvd 04/17/2016 14:40) Final results Test Result Flag Units (Reference) CDT SOURCE STOOL C-DIFFICILE TOXIN A/B CDT RESULT:: NEGATIVE . PROGRESS AND PROCEDURES Disposition: Discharged home in good and improved condition. Condition: good. CLINICAL IMPRESSION Acute viral gastroenteritis. INSTRUCTIONS Drink plenty of fluids. Your Current Medications: CONTINUE TAKING THE FOLLOWING MEDICATIONS: Vibrid*. Prescription Medications: Zofran (orally disintegrating tablets) 4 mg: take 1 orally every 6 hours as needed for nausea and vomiting. Dispense ten (10). No refill. Substitution is permissible. Bentyl 20 mg tablets: take 1 orally every 6 hours as needed for abdominal cramps or abdominal discomfort. Dispense thirty (30). No refill. Substitution is permissible. Follow-up: Follow up with your doctor in about two days. Call for an appointment. (Electronically signed by Kanu Baum Dr. 04/18/2016 20:42)
--- NOTE | 2016-04-17 15:08 | ED ORDER SUMMARY ---
..... Patient: TINY HARVEY OrderSheet [facility] VisitID: [id number] [address] [place] [address] 41y, F Registration Date/Time: 04/17/2016 ORDER SHEET Weight: 76.6 kg (stated) Allergies: Casein, Dairy, Gluten Meal, Soybean-containing Drug Products, wheat GENERAL ORDERS: CBC w Diff Urgent (12:04/17/2016 LWhalen R.N. per protocol) (Ack 12:27 KHoerner) (13:36 LWhalen R.N.) CMP Urgent (:04/17/2016 LWhalen R.N. per protocol) (Ack 12:27 KHoerner) (13:36 LWhalen R.N.) UA-Culture if indicated Urgent (:04/17/2016 LWhalen R.N. per protocol) (Ack 12:27 KHoerner) (13:36 LWhalen R.N.) PT with INR Urgent (12:04/17/2016 LWhalen R.N. per protocol) (Ack 12:27 KHoerner) (13:36 LWhalen R.N.) Amylase Urgent (12:04/17/2016 LWhalen R.N. per protocol) (Ack 12:27 KHoerner) (13:36 LWhalen R.N.) Lipase Urgent (12:04/17/2016 LWhalen R.N. per protocol) (Ack 12:27 KHoerner) (13:36 LWhalen R.N.) Urine Urgent (12:04/17/2016 LWhalen R.N. per protocol) (Ack 12:27 KHoerner) (13:36 LWhalen R.N.) Serum Quantitative Urgent (:04/17/2016 LWhalen R.N. per protocol) (Ack 12:27 KHoerner) (Cancelled: Physician Order12:57 Becky Partida) Pulse oximeter (12:04/17/2016 LWhalen R.N. per protocol) (Ack 12:27 KHoerner) (13:36 LWhalen R.N.) Vitals (12:23 04/17/2016 LWhalen R.N. per protocol) (Ack 12:27 Ric) (13:36 LWhalen R.N.) Stool for C. Difficile Urgent (12:57 04/17/2016 Becky Partida) (Ack 12:59 Ric) (13:36 LWhalen R.N.) MEDICATION ORDERS: Bentyl PO 20 mg (NOW) (12:58 04/17/2016 Becky Partida) (13:36 LWhalen R.N.) IV FLUIDS: IV NS : initial bolus 1000 mL (1000 mL/hr), then 1000 mL/hr (NOW) (12:20 04/17/2016 LWhalen R.N. per protocol) (12:24 LWhalen R.N.) IV Saline Lock (12:23 04/17/2016 LWhalen R.N. per protocol) (12:25 LWhalen R.N.) Zofran IV 4 mg (NOW) (12:58 04/17/2016 Becky Partida) (13:36 LWhalen R.N.) ORDER SHEET NOTES: [Electronically signed by Kanu Baum Dr. (20:42 04/18/2016)] [Electronically signed by Jocelyne Pugh R.N. (19:15 04/20/2016)] [Electronically locked/signed by Jocelyne Pugh R.N. (19:15 04/20/2016)]
--- NOTE | 2016-04-20 19:15 | ED MAR SUMMARY ---
..... Medication Administration Record [facility] [address] [place] [address] Patient: TINY HARVEY Visit ID: [id number] 41y, F Weight: 76.6 kg Height/Length: 64 in BMI: 29 ALLERGIES: Casein, Dairy, Gluten Meal, Soybean-containing Drug Products, wheat Start 12:24 04/17/2016 Jocelyne Pugh R.N. Medication Administered: IV NS (SALINE), Dose: IV Fluids over 1 hour(s), Rate: 1000 mL/hr, Dispensed: 1000 mL bag, Site: #1 left AC. Medication Ordered: IV NS : initial bolus 1000 mL (1000 mL/hr), then 1000 mL/hr (NOW). Given 13:21 04/17/2016 Jocelyne Pugh R.N. Medication Administered: ZOFRAN [IVP] (ONDANSETRON HCL), Dose: 4 mg IVP over 2 minute(s), Site: #1 left AC. Medication Ordered: Zofran IV 4 mg (NOW). Given 13:36 04/17/2016 Jocelyne Pugh R.N. Medication Administered: BENTYL [PO] (DICYCLOMINE HCL), Dose: 20 mg Tablets PO. Medication Ordered: Bentyl PO 20 mg (NOW).
--- NOTE | 2016-04-20 19:15 | ED DISCHARGE INSTRUCTIONS ---
Patient: TINY HARVEY General Instructions [facility] VisitID: [id number] [place] [address] 41y, F Registration Date/Time: 04/17/2016 Acute viral gastroenteritis. INSTRUCTIONS Drink plenty of fluids. Your Current Medications: CONTINUE TAKING THE FOLLOWING MEDICATIONS: Vibrid*. Prescription Medications: Zofran (orally disintegrating tablets) 4 mg: take 1 orally every 6 hours as needed for nausea and vomiting. Dispense ten (10). No refill. Substitution is permissible. Bentyl 20 mg tablets: take 1 orally every 6 hours as needed for abdominal cramps or abdominal discomfort. Dispense thirty (30). No refill. Substitution is permissible. Follow-up: Follow up with your doctor in about two days. Call for an appointment. ADDITIONAL INFORMATION Viral Gastroenteritis (6Yr-Adult) Gastroenteritis is another name for thestomach flu.It is most often caused by a virus that affects the stomach and intestinal tract. Symptoms include stomach cramping and fever, vomiting and/or diarrhea, and can last from 2 to 7 days. The danger from repeated vomiting or diarrhea is dehydration. This is the loss of too much water and minerals from the body. When this occurs, body fluids must be replaced. Antibiotics are not effective for this illness, but simple home treatment will be helpful. Home Care If symptoms are severe, rest at home for the next 24 hours. Avoid tobacco, caffeine, and alcohol use, which can worsen symptoms. Acetaminophen (Tylenol) or ibuprofen (Motrin, Advil) may be usedfor fever or pain unless another medication was prescribed. NOTE: If you have chronic liver or kidney disease or ever had a stomach ulcer or GI bleeding, talk with your doctor before using these medicines. Aspirin should never be used in anyone under 18 years of age who is ill with a fever. It may cause severe liver damage. If medicines for diarrhea or vomiting were prescribed, be sure they are takenonly as directed. If vomiting, drink small amounts of clear fluids (such as water, sports drinks, clear sodas) at frequent intervals to prevent dehydration. Start with 1 to 2 tablespoons every 10 minutes. Once vomiting stops, follow these guidelines: During The First 12 To 24 Hours follow the diet below: Beverages: Sport drinks like Gatorade, soft drinks without caffeine; elaina gosia, mineral water (plain or flavored), decaffeinated tea and coffee. Soups: Clear broth, consomm and bouillon Desserts: Plain gelatin (Jell-O), Popsicles and fruit juice bars. During The Next 24 Hours you may add the following to the above: Hot cereal, plain toast, bread, rolls, crackers Plain noodles, rice, mashed potatoes, chicken noodle or rice soup Unsweetened canned fruit (avoid pineapple), bananas Limit fat intake to less than 15 grams per day by avoiding margarine, butter, oils, mayonnaise, sauces, gravies, fried foods, peanut butter, meat, poultry, and fish. Limit fiber; avoid raw or cooked vegetables, fresh fruits (except bananas), and bran cereals. Limit caffeine and chocolate. Do not use spices or seasonings except salt. During The Next 24 Hours The patient can gradually resume a normal diet as symptoms lessen. Preventing Spread Hand washing with soap and water is the best way to prevent the spread of viruses. Caregivers should wash their hands before andafter touching the sick person. The sick person, as well as everyone in the family,should wash their hands after using the toilet and before meals. Clean the toilet after each use. People with diarrhea should not prepare food for others. If you are preparing your own foods, wash your hands before and after. Follow Up with your doctor as advised. Call your doctor if you are not improving over the next 2 to 3 days. If a stool (diarrhea) sample was taken, you may call in 2 days (or as directed) for the results. Get Prompt Medical Attention if any of the following occur: Increasing abdominal pain Continued vomiting (unable to keep liquids down) Frequent diarrhea (more than 5 times a day) Blood in vomit or stool (black or red color) Dark urine, reduced urine output, or extreme thirst Weakness, dizziness, fainting Drowsiness, confusion, stiff neck, or seizure Fever of 100.4F (38C) oral or higher, not better with fever medication New rash Ondansetron Oral disintegrating tablet What is this medicine? ONDANSETRON (on RAFA se nathan) is used to treat nausea and vomiting caused by chemotherapy. It is also used to prevent or treat nausea and vomiting after surgery. How should I use this medicine? These tablets are made to dissolve in the mouth. Do not try to push the tablet through the foil backing. With dry hands, peel away the foil backing and gently remove the tablet. Place the tablet in the mouth and allow it to dissolve, then swallow. While you may take these tablets with water, it is not necessary to do so. Talk to your cad programmer regarding the use of this medicine in children. Special care may be needed. What side effects may I notice from receiving this medicine? Side effects that you should report to your doctor or health career development associate as soon as possible: allergic reactions like skin rash, itching or hives, swelling of the face, lips, or tongue breathing problems dizziness fast or irregular heartbeat feeling faint or lightheaded, falls fever and chills swelling of the hands and feet tightness in the chest Side effects that usually do not require medical attention (report to your doctor or health career development associate if they continue or are bothersome): constipation or diarrhea headache What may interact with this medicine? Do not take this medicine with any of the following medications: -apomorphine -cisapride -dofetilide -dronedarone -pimozide -thioridazine -ziprasidone This medicine may also interact with the following medications: -carbamazepine -phenytoin -rifampicin -tramadol -other medicines that prolong the QT interval (cause an abnormal heart rhythm) What if I miss a dose? If you miss a dose, take it as soon as you can. If it is almost time for your next dose, take only that dose. Do not take double or extra doses. Where should I keep my medicine? Keep out of the reach of children. Store between 2 and 30 degrees C (36 and 86 degrees F). Throw away any unused medicine after the expiration date. What should I tell my health care provider before I take this medicine? They need to know if you have any of these conditions: heart disease history of irregular heartbeat liver disease low levels of magnesium or potassium in the blood an unusual or allergic reaction to ondansetron, granisetron, other medicines, foods, dyes, or preservatives or trying to get breast-feeding What should I watch for while using this medicine? Check with your doctor or health career development associate as soon as you can if you have any sign of an allergic reaction. Dicyclomine Hydrochloride Oral tablet What is this medicine? DICYCLOMINE (dye HUONGE crescencio ahumada) is used to treat bowel problems including irritable bowel syndrome. How should I use this medicine? Take this medicine by mouth with a glass of water. Follow the directions on the prescription label. It is best to take this medicine on an empty stomach, 30 minutes to 1 hour before meals. Take your medicine at regular intervals. Do not take your medicine more often than directed. Talk to your cad programmer regarding the use of this medicine in children. Special care may be needed. While this drug may be prescribed for children as young as 6 months of age for selected conditions, precautions do apply. Patients over 65 years old may have a stronger reaction and need a smaller dose. What side effects may I notice from receiving this medicine? Side effects that you should report to your doctor or health career development associate as soon as possible: agitation, nervousness, confusion difficulty swallowing dizziness, drowsiness fast or slow heartbeat hallucinations pain or difficulty passing urine Side effects that usually do not require medical attention (report to your doctor or health career development associate if they continue or are bothersome): constipation headache nausea or vomiting sexual difficulty What may interact with this medicine? amantadine antacids benztropine digoxin disopyramide medicines for allergies, colds and breathing difficulties medicines for alzheimer's disease medicines for anxiety or sleeping problems medicines for depression or psychotic disturbances medicines for diarrhea medicines for pain metoclopramide tegaserod What if I miss a dose? If you miss a dose, take it as soon as you can. If it is almost time for your next dose, take only that dose. Do not take double or extra doses. Where should I keep my medicine? Keep out of the reach of children. Store at room temperature below 30 degrees C (86 degrees F). Protect from light. Throw away any unused medicine after the expiration date. What should I tell my health care provider before I take this medicine? They need to know if you have any of these conditions: difficulty passing urine esophagus problems or heartburn glaucoma heart disease, or previous heart attack myasthenia gravis prostate trouble stomach infection, or obstruction ulcerative colitis an unusual or allergic reaction to dicyclomine, other medicines, foods, dyes, or preservatives or trying to get breast-feeding What should I watch for while using this medicine? You may get drowsy, dizzy, or have blurred vision. Do not drive, use machinery, or do anything that needs mental alertness until you know how this medicine affects you. To reduce the risk of dizzy or fainting spells, do not sit or stand up quickly, especially if you are an older patient. Alcohol can make you more drowsy, avoid alcoholic drinks. Stay out of bright light and wear sunglasses if this medicine makes your eyes more sensitive to light. Avoid extreme heat (hot tubs, saunas). This medicine can cause you to sweat less than normal. Your body temperature could increase to dangerous levels, which may lead to heat stroke. Antacids can stop this medicine from working. If you get an upset stomach and want to take an antacid, make sure there is an interval of at least 1 to 2 hours before or after you take this medicine. Your mouth may get dry. Chewing sugarless gum or sucking hard candy, and drinking plenty of water may help. Contact your doctor if the problem does not go away or is severe. You have been given the following additional information: Gastroenteritis, Viral (6Y-Adult) Ondansetron Oral disintegrating tablet Dicyclomine Hydrochloride Oral tablet (Electronically signed by Kanu Baum Dr. 04/18/2016 20:42)
--- NOTE | 2016-04-20 19:15 | ED MED RECONCILIATION SUMMARY ---
Patient: TINY HARVEY Medication Reconciliation Report [facility] VisitID: [id number] [address] [place] [address] 41y, F Registration Date/Time: 04/17/2016 Weight: 76.6 kg Height/Length: 64 in. BMI: 29.0 ALLERGIES: Casein, Dairy, Gluten Meal, Soybean-containing Drug Products, wheat The patient's Home Medications are listed below: CONTINUE TAKING THE FOLLOWING MEDICATIONS: Vibrid The source(s) of the original Home Medication information: patient The following Medications were given to the patient in the Emergency Department: IV NS IV Fluids bolus 0, then 1000 mL/hr, administered: 04/17/2016 12:24:00 PM Zofran [IVP] IVP 4 mg, administered: 04/17/2016 1:21:00 PM Bentyl [PO] PO 20 mg, administered: 04/17/2016 1:36:00 PM The following Medications were prescribed to the patient: Zofran (orally disintegrating tablets) 4 mg: take 1 orally every 6 hours as needed for nausea and vomiting. Dispense ten (10). No refill. Substitution is permissible. -- Kanu Baum Dr. Bentyl 20 mg tablets: take 1 orally every 6 hours as needed for abdominal cramps or abdominal discomfort. Dispense thirty (30). No refill. Substitution is permissible. -- Kanu Baum Dr.
--- NOTE | 2016-04-20 19:15 | ED MAR SUMMARY ---
..... Medication Administration Record [facility] [address] [place] [address] Patient: TINY HARVEY Visit ID: [id number] 41y, F Weight: 76.6 kg Height/Length: 64 in BMI: 29 ALLERGIES: Casein, Dairy, Gluten Meal, Soybean-containing Drug Products, wheat Start 12:24 04/17/2016 Jocelyne Pugh R.N. Medication Administered: IV NS (SALINE), Dose: IV Fluids over 1 hour(s), Rate: 1000 mL/hr, Dispensed: 1000 mL bag, Site: #1 left AC. Medication Ordered: IV NS : initial bolus 1000 mL (1000 mL/hr), then 1000 mL/hr (NOW). Given 13:21 04/17/2016 Jocelyne Pugh R.N. Medication Administered: ZOFRAN [IVP] (ONDANSETRON HCL), Dose: 4 mg IVP over 2 minute(s), Site: #1 left AC. Medication Ordered: Zofran IV 4 mg (NOW). Given 13:36 04/17/2016 Jocelyne Pugh R.N. Medication Administered: BENTYL [PO] (DICYCLOMINE HCL), Dose: 20 mg Tablets PO. Medication Ordered: Bentyl PO 20 mg (NOW).
--- NOTE | 2016-04-20 19:15 | ED MED RECONCILIATION SUMMARY ---
Patient: TINY HARVEY Medication Reconciliation Report [facility] VisitID: [id number] [address] [place] [address] 41y, F Registration Date/Time: 04/17/2016 Weight: 76.6 kg Height/Length: 64 in. BMI: 29.0 ALLERGIES: Casein, Dairy, Gluten Meal, Soybean-containing Drug Products, wheat The patient's Home Medications are listed below: CONTINUE TAKING THE FOLLOWING MEDICATIONS: Vibrid The source(s) of the original Home Medication information: patient The following Medications were given to the patient in the Emergency Department: IV NS IV Fluids bolus 0, then 1000 mL/hr, administered: 04/17/2016 12:24:00 PM Zofran [IVP] IVP 4 mg, administered: 04/17/2016 1:21:00 PM Bentyl [PO] PO 20 mg, administered: 04/17/2016 1:36:00 PM The following Medications were prescribed to the patient: Zofran (orally disintegrating tablets) 4 mg: take 1 orally every 6 hours as needed for nausea and vomiting. Dispense ten (10). No refill. Substitution is permissible. -- Kanu Baum Dr. Bentyl 20 mg tablets: take 1 orally every 6 hours as needed for abdominal cramps or abdominal discomfort. Dispense thirty (30). No refill. Substitution is permissible. -- Kanu Baum Dr.
== END 2016-04-17 16:00 | disposition home or self-care (01) ==
LOC: ED SRH 11:22
DX: A08.4 Viral intestinal infection, unspecified (principal)
CPT/HCPCS: 90100; 90112; 90197; 92235; 92530; 94060; 95059